=== PATIENT | female | born 1965 | race Caucasian/White ===

== ENCOUNTER 2025-02-15 14:22 | Emergency (ER) | payer BC, SELFPAY ==
[2025-02-15] VITALS (7 sets, daily range): BP systolic 106–139; BP diastolic 68–92; BMI 28.9
--- NOTE | 2025-02-15 14:36 | ED.GENMED ---
History of Present Illness
General
Chief Complaint: Fainting/Passed Out
Time Seen by Provider: 02/15/25 14:36
Nursing documentation reviewed up to this point in time: agreed with
History of Present Illness
History of Present Illness:
59-year-old female presents to the ER via EMS for evaluation after a near syncopal episode that occurred at a local restaurant. Patient states that she was eating her lunch without any difficulty. She also drank approximately half of a
cosmopolitan. She then began to feel very nauseated. She started to become diaphoretic. She began to feel lightheaded. She tried to stand up and had an episode of vertigo. She then felt herself become profoundly weak and slide to the floor.
She denies any loss of control of bowel or bladder. She denies headache. No change in vision. No prior history of similar syncopal events. No recent change in medications. She has recently lost 85 pounds due to use of semaglutide, no recent
change in dosing. She denies any diarrhea. She did have several episodes of emesis which resolved after Zofran administered and route to the ER. She reports symptomatic resolution at time of evaluation. She denies any prior personal history of
ACS. No recent travel. No peripheral edema. No calf pain.
Review of Systems
Review of Systems
Allergies reviewed?: Yes
Phy Exam
Physical Exam
Physical Exam:
Patient is awake, alert, appears in no acute distress, head is NCAT, PERRL, EOMI mucous membranes moist, conjunctiva pink, heart regular rate and rhythm without murmurs or ectopy, lungs are clear to auscultation without wheezes rales or rhonchi, no
JVD, abdomen is soft and nontender on palpation, extremities without edema, GCS is 15, no dysdiadochokinesia, no ataxia, no pronator drift
Course
Orders/Labs/Results
Orders:
Orders
02/15/25 14:31
Electrocardiogram (*1) Urgent
Reason for Study: Tachycardia
02/15/25 14:32
EKG- Treatment ONCE
02/15/25 14:33
Complete Blood Count/With Diff Urgent
02/15/25 14:46
0.9% Sodium Chloride 1000 ml [Nss] 1,000 ml IV BOLUS
CR Chest - 2 Views Urgent
Comment:
Reason For Exam: syncope
02/15/25 16:42
Comprehensive Metabolic Panel Urgent
Troponin I Urgent
Urinalysis Reflex To Culture Urgent
Date Specimen was Collected: 02/15/25
Time Specimen was Collected: 16:05
Urine Microscopic Reflex Cult Urgent
Urine Culture Urgent
PATRICIA Source: U
Specimen Description:
Date Specimen was Collected: 02/15/25
Time Specimen was Collected: 16:05
02/15/25 17:43
Electrocardiogram (*1) Urgent
Reason for Study: Syncope
EKG- Treatment ONCE
02/15/25 18:56
Troponin I Urgent
Abnormal Lab Results
02/15/25
16:42
Chloride 109 H mmol/L
(98-107)
BUN 22 H mg/dl
(7-17)
Creatinine 0.5 L mg/dL
(0.6-1.0)
ALT 55 H U/L
(0-35)
Leukocyte Esterase Rfl 1+ A
(Negative)
Urine Bacteria (Reflex) Few A
(Negative)
02/15/25 14:33
02/15/25 16:42
Labs are very reassuring, urinalysis negative. Initial troponin negative. Will repeat
Vital Signs
Initial and Last Documented VS:
Initial Vital Signs
Pulse Resp BP Pulse Ox
85 18 122/80 98
02/15/25 14:25 02/15/25 14:25 02/15/25 14:25 02/15/25 14:25
Last Documented Vital Signs
Temp Pulse Resp BP Pulse Ox
98.1 F 84 15 139/80 98
02/15/25 14:35 02/15/25 19:00 02/15/25 19:00 02/15/25 19:00 02/15/25 19:00
MDM/Problems Addressed
Differential Diagnosis Includes:
Differential diagnosis to consider but not limited to vasovagal episode, arrhythmia, lecture dyscrasia, dehydration along with other etiologies considered
*Radiology
Radiology exam reviewed: preliminary read by ED provider (I independently viewed and interpreted two-view chest x-ray showing no infiltrate, normal cardiac silhouette) and radiology read reviewed
*Pulse Oximetry
SaO2: 97
Oxygen Mode of Delivery: Room air
Patient hypoxic: no
*EKG
Interpreted by ED Provider?: Yes (I independently viewed and interpreted rhythm strip showing sinus rhythm with first-degree AV block, rate 78, normal axis, normal intervals otherwise, no ST elevation, this is a nonspecific EKG without evidence for
acute ischemia, no prior for comparison)
*Log Clerk Interpretation
Rate: normal (I independently viewed and interpreted rhythm strip showing sinus rhythm with first-degree AV block, no ectopy)
*Critical Care Note
Total Time (30-74mins, 75-104mins- exclusive of procedures): Not Applicable
Update Note
Update Note:
Patient feeling well. I discussed with patient and present at bedside very reassuring labs and likely etiology symptoms related to vasovagal event.. They agree with plan for repeated troponin. Patient was given water to drink. They have
no questions at the current time.
1958:I reviewed with patient and present at bedside very reassuring repeated troponin. I discussed with them benefit of follow-up with primary care physician and will provide him with cardiology referral information for additional workup as
she has never seen a truck despatcher for routine screening and she is greater than age 50. Patient and present at bedside feel comfortable plan for discharge and has no questions at the current time.
ED Attending Note
-
Portions of this chart may have been created with voice recognition software.� Occasional wrong word or��sound alike� substitutions may have occurred due to the inherent limitations of voice recognition software.
Discharge Plan
Departure
Patient Disposition: Home (Routine Discharge)
Date of Disposition: 02/15/25
Time of Disposition: 20:00
Patient with high blood pressure during this ER visit?: No
Discharge Problem:
Syncope, vasovagal
Instructions: Syncope (Fainting) (DC)
Referrals:
Lionel Chandra MD [Family Provider, Family Practice]
Omar Bonilla MD [Active, Cardiology] - Call in 1-3 days for appt
Discharge Problem: Syncope, vasovagal
Activity Restrictions/Additional Instructions:
Encourage fluids. Please follow-up with your primary care physician for reevaluation along with cardiology as referred. Return to the ER for any concerns
Interventions
Interventions:
*Risk Screen - Suicide Last Done: 02/15/25 14:25
*General Assessment Last Done: 02/15/25 14:25
*Neglect/Abuse Screening Last Done: 02/15/25 14:25
*ED- Fall Risk Assessment Last Done: 02/15/25 14:34
*ED COVID-19 Vaccine History Last Done: 02/15/25 14:34
ED- Cardiac Assessment Last Done: 02/15/25 14:25
ED- Neurological Assessment Last Done: 02/15/25 14:25
Discharge Date and Time
Print Language: MAORI
[2025-02-15 14:41] LABS: Hematocrit 44.0 % (37.0-47.0); Hemoglobin 14.7 g/dL (12.0-16.0); Mean Corp Hgb Conc. 33.4 g/dL (33.0-37.0); Mean Corpuscular Volume 85.6 fL (81.0-99.0); Nucleated Red Blood Cells % 0 %; Platelet Count 225 10^3/uL (130-400); Red Cell Dist. Width 13.7 % (11.5-14.5)
[2025-02-15] MEDS: NSS 1000 IV (15:10)
[2025-02-15 17:11] LABS: ALT (SGPT) 55 U/L (0-35); AST (SGOT) 36 U/L (14-36); Albumin 4.2 g/dl (3.5-5.0); Alkaline Phosphatase 66 U/L (38-126); Blood Urea Nitrogen 22 mg/dl (7-17); Calcium 9.1 mg/dl (8.4-10.2); Carbon Dioxide 23 mmol/L (22-30); Chloride 109 mmol/L (98-107); Estimated Creatinine Clearance 95 ml/min; Glucose 91 mg/dl (70-99); Potassium 4.1 mmol/L (3.5-5.1); Sodium 139 mmol/L (135-145); Total Protein 6.8 g/dl (6.3-8.2); Urine Character Clear (Clear); eGFR > 60.00
[2025-02-15 17:22] LABS: Troponin I < 0.012 ng/ml
[2025-02-15 18:00] LABS: Urine Red Blood Cell 0-2 /HPF (0-2)
[2025-02-15 19:34] LABS: Troponin I < 0.012 ng/ml
== END 2025-02-15 20:09 | disposition home or self-care (01) ==
LOC: EMR 14:22
PROVIDERS: EMERGENCY PHYSICIAN Emergency Medicine; FAMILY PHYSICIAN Family Medicine
DX: R55 Syncope and collapse (principal)
CPT/HCPCS: 99283; 96360; 71046; 80053; 81003; 81015; 84484; 85025; 87086; 93005